=== PATIENT | male | born 1970 | race Caucasian/White ===

== ENCOUNTER 2021-10-22 09:50 | Emergency (ER) | payer MEDICARE, SELFPAY ==
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
[2021-10-22 10:09] VITALS: BP 130/99; PULSE 96; RESP 16; TEMP 37; O2SAT 96
[2021-10-22 10:45] LABS: Basophils Percent Auto 0.8 % (0.0-1.0); Eosinophils Absolute Auto 0.02 K/mm3 (0.02-0.50); Eosinophils Percent Auto 0.2 % (1.0-6.0); Hemoglobin 9.6 g/dL (14.0-18.0); Immature Granulocyte Absolute 0.06 K/mm3 (0.00-0.00); Immature Granulocyte Percent A 0.5 % (0.0-0.0); Immature Platelet Fraction Pct 10.2 % (1.0-7.0); Lymphocytes Absolute Auto 0.91 K/mm3 (1.10-4.50); Lymphocytes Percent Auto 6.9 % (18.0-42.0); Mean Corpuscular Hemoglobin 27.6 pg (27.0-31.0); Mean Corpuscular Volume 89.1 fL (78.0-102.0); Mean Platelet Volume 11.1 fl (8.7-11.0); Monocytes Absolute Auto 0.74 K/mm3 (0.10-0.90); Monocytes Percent Auto 5.6 % (2.0-11.0); Neutrophils Absolute Auto 11.3 K/mm3 (1.7-7.2); Platelet Count Result 225 K/mm3 (150-420); Red Blood Count 3.48 M/mm3 (4.70-6.10); Red Cell Distribution Width 13.3 % (11.6-14.4); White Blood Count 13.1 K/mm3 (4.8-10.8)
[2021-10-22 11:01] LABS: Alanine Aminotransferase 11 U/L (16-63); Albumin Level 3.1 g/dL (3.4-5.0); Alkaline Phosphatase 77 U/L (46-116); Amylase 73 U/L (25-115); Anion Gap 10 mmol/L (8-16); Aspartate Amino Transferase 26 U/L (15-37); Bilirubin,Total 0.5 mg/dL (0.00-1.00); Blood Urea Nitrogen 13 mg/dL (7-18); CRP 6.2 mg/dL (0.0-0.9); Calcium 9.2 mg/dL (8.5-10.1); Carbon Dioxide 23 mmol/L (21-32); Chloride 97 mmol/L (98-108); Estimated CRCL calculation 110 ml/min; Estimated Glomerular Filt Rate > 60; Glucose 95 mg/dL (70-99); Lipase 107 U/L (73-393); Magnesium 2.2 mg/dL (1.8-2.4); Osmolality Calculated 270 mOsm/kg (285-295); Potassium 4.7 mmol/L (3.5-5.1); Sodium 130 mmol/L (136-145); Total Protein 8.2 g/dL (6.4-8.2)
[2021-10-22 11:04] LABS: Influenza A QL RT-PCR Negative (Negative); Influenza B QL RT-PCR Negative (Negative); SARS-CoV-2 RNA PCR Negative (Negative)
[2021-10-22] MEDS: SODIUM CHLORIDE 0.9% IV 1,000 ML 999 ML IV CONT (11:31)
[2021-10-22 12:29] VITALS: BP 136/91; PULSE 81; RESP 16; TEMP 36.6; O2SAT 99
== END 2021-10-22 12:34 | disposition home or self-care (01) ==
PROVIDERS: Emergency Provider Emergency Medicine
DX: K52.9 Noninfective gastroenteritis and colitis, unspecified (principal); Z20.822 Contact with and (suspected) exposure to COVID-19; I10 Essential (primary) hypertension
CPT/HCPCS: 36415; 80053; 82150; 83690; 83735; 85025; 85055; 86140; 87502; 96360; 99283; C9803; J7030; U0003; U0005

== ENCOUNTER 2022-05-01 12:38 | Outpatient (CLI) | payer MEDICARE, SELFPAY ==
--- NOTE | ~2022-05-01 | CT_ITS ---
EXAMINATION:CT lung screening DATE: 05/01/2022 13:02 INDICATION: Personal history of nicotine dependence. Current smoker. TECHNIQUE: Computed tomography (CT) of the chest was performed without intravenous contrast. Automate d exposure control and iterative reconstruction technique were employed. The dose-length product (DLP ) was 258.06 mGy-cm. COMPARISON: None. FINDINGS: There is elevation of right hemidiaphragm. There is mild emphysema. There is a 2 mm nodule in left upper lobe. There is mild atelectasis bilaterally. Calcified left lung nodules are consistent with old granulomatous disease. There is a trace left pleural effusion. The heart size is normal. No pericardial effusion. There is a 3.4 x 2.3 cm pericardial cyst in the mediastinum. There are surgica l clips in the left upper quadrant. There is splenosis in the left upper quadrant. Partially visualiz ed is an 11.6 cm rim calcified mass in left abdomen. There is mild thoracic spondylosis. IMPRESSION: 1. Lung-RADS category 2: Benign appearance or behavior. 2. Partially visualized 11.6 cm rim-calcified mass in left abdomen, most likely a chronic hematoma. C onsider CT abdomen and pelvis with contrast or comparison with any outside imaging. Reviewed, dictated and finalized at location A. IMPRESSION: 1. Lung-RADS category 2: Benign appearance or behavior. 2. Partially visualized 11.6 cm rim-calcified mass in left abdomen, most likely a chronic hematoma. Consider CT abdomen and pelvis with contrast or comparison with any outside imaging.
== END 2022-05-01 12:39 | disposition home or self-care (01) ==
LOC: CHSIMG 12:42
PROVIDERS: PCP Nurse Practitioner; Visit Provider Nurse Practitioner
DX: Z87.891 Personal history of nicotine dependence (principal)
CPT/HCPCS: 71271

== ENCOUNTER 2022-06-26 01:43 | Emergency (ER) | payer MEDICARE, SELFPAY ==
[2022-06-26 01:45] VITALS: BP 137/81; PULSE 135; RESP 18; TEMP 37.1; O2SAT 93
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
[2022-06-26 02:22] LABS: Hemoglobin 13.2 g/dL (14.0-18.0); Mean Corpuscular HGB Conc 33.8 g/dL (32.0-36.0); Mean Corpuscular Hemoglobin 29.9 pg (27.0-31.0); Mean Corpuscular Volume 88.4 fL (78.0-102.0); Mean Platelet Volume 11.2 fl (8.7-11.0); Platelet Count Result 323 K/mm3 (150-420); Red Blood Count 4.41 M/mm3 (4.70-6.10); Red Cell Distribution Width 13.5 % (11.6-14.4); White Blood Count 10.8 K/mm3 (4.8-10.8)
[2022-06-26 02:23] LABS: Appearance Urine Clear (Clear); Bilirubin Urine Negative (Negative); Blood Urine 3+ (Negative); Glucose Urine UA Negative (Negative); Ketones Urine Negative (Negative); Leukocyte Esterase Ur Negative LEU/UL (Negative); Nitrate Urine Negative (Negative); Protein Urine Negative (Negative); Specific Grav Ur 1.015 (1.010-1.020); Urobilinogen Urine 0.2 mg/dL (0.2-1.0); pH Urine 6.5 (5.0-8.0)
[2022-06-26 02:30] LABS: Add Urine Microscopic? YES; Bacteria Urine Trace /hpf; Color Urine Light Yellow (Yellow); RBC Urine >75 /hpf (0-2); Squamous Epithelial Cell Urine None seen /hpf (Few); WBC Urine 0-3 /hpf (0-3)
[2022-06-26 02:38] LABS: Alanine Aminotransferase 12 U/L (16-63); Albumin Level 3.8 g/dL (3.4-5.0); Alkaline Phosphatase 84 U/L (46-116); Anion Gap 8 mmol/L (8-16); Aspartate Amino Transferase 17 U/L (15-37); Bilirubin,Total 0.3 mg/dL (0.00-1.00); Blood Urea Nitrogen 11 mg/dL (7-18); CRP 1.4 mg/dL (0.0-0.9); Calcium 8.7 mg/dL (8.5-10.1); Carbon Dioxide 28 mmol/L (21-32); Chloride 98 mmol/L (98-108); Estimated CRCL calculation 84 ml/min; Estimated Glomerular Filt Rate 57; Glucose 110 mg/dL (70-99); Osmolality Calculated 278 mOsm/kg (285-295); Potassium 3.3 mmol/L (3.5-5.1); Sodium 134 mmol/L (136-145); Total Protein 7.6 g/dL (6.4-8.2)
[2022-06-26 02:40] LABS: Band Neutrophils Percent 0 % (0-6); Basophils Absolute Manual 0.32 K/mm3 (0-0.1); Basophils Percent Manual 3 % (0-1); Eosinophils Absolute Manual 0.21 K/mm3 (0.02-0.5); Eosinophils Percent Manual 2 % (1-6); Lymphocytes Absolute Manual 0.75 K/mm3 (1.1-4.5); Lymphocytes Percent Manual 7 % (18-44); Monocytes Absolute Manual 1.51 K/mm3 (0.1-0.90); Monocytes Percent Manual 14 % (3-9); Neutrophils Absolute Manual 7.99 K/mm3 (1.3-6.7); Neutrophils Percent Manual 74 % (46-73); Platelet Estimate Adequate (Adequate)
[2022-06-26 02:43] LABS: Lactic Acid Reflex 0.9 mmol/L (0.4-2.0)
[2022-06-26] MEDS: SODIUM CHLORIDE 0.9% IV 1,000 ML 999 ML IV CONT (02:50)
[2022-06-26] MEDS: ONDANSETRON INJ 4 MG/2 ML VIAL IV PUSH (02:55)
[2022-06-26 02:57] LABS: Influenza A QL RT-PCR Negative (Negative); Influenza B QL RT-PCR Negative (Negative); SARS-CoV-2 RNA PCR Positive (Negative)
[2022-06-26] MEDS: POTASSIUM CHLORIDE 20 MEQ TABLET PO (03:05)
[2022-06-26 03:08] VITALS: BP 132/81; PULSE 97; RESP 20; O2SAT 92
[2022-06-26 03:45] VITALS: BP 132/85; PULSE 90; RESP 20; TEMP 37.2; O2SAT 95
== END 2022-06-26 03:54 | disposition home or self-care (01) ==
PROVIDERS: Emergency Provider Emergency Medicine; PCP Family Medicine
DX: U07.1 COVID-19 (principal); K21.9 Gastro-esophageal reflux disease without esophagitis; I10 Essential (primary) hypertension
CPT/HCPCS: 36415; 80053; 81001; 83605; 85025; 86140; 87636; 96361; 96374; 99284; A9270; J2405; J7030